=== PATIENT | female | born 1935 | race Caucasian/White ===

== ENCOUNTER 2024-03-20 07:25 | Observation (INO) ==
[2024-03-20] MEDS: CATAPRES TAB 0.1 MG PO ONE (08:01)
[2024-03-20 08:24] LABS: BASOPHILS # (AUTO) 0.1 X10^3/uL (0.0-0.1); BASOPHILS % (AUTO) 1.4 % (0.2-1.0); EOSINOPHILS # (AUTO) 0.2 x10^3/uL (0.0-0.2); EOSINOPHILS % (AUTO) 2.8 % (0.9-2.9); HEMATOCRIT 36.2 % (36.0-47.0); HEMOGLOBIN 12.5 g/dL (12.0-16.0); LYMPHOCYTES # (AUTO) 2.5 X10^3/uL (1.3-2.9); LYMPHOCYTES % (AUTO) 36.8 % (21.0-51.0); MEAN CORPUSCULAR HEMOGLOBIN 32.2 pg (27.0-34.0); MEAN CORPUSCULAR HGB CONC 34.5 g/dL (33.0-35.0); MEAN CORPUSCULAR VOLUME 93.1 fL (80.0-100.0); MEAN PLATELET VOLUME 6.8 fL (7.4-11.0); MONOCYTES # (AUTO) 0.5 x10^3/uL (0.3-0.8); MONOCYTES % (AUTO) 7.1 % (0.0-13.0); NEUTROPHILS # (AUTO) 3.6 x10^3/uL (2.2-4.8); NEUTROPHILS % (AUTO) 51.9 % (42.0-75.0); PLATELET COUNT 283 X10^3/uL (150.0-450.0); RED BLOOD COUNT 3.89 X10^6/uL (3.5-5.4); RED CELL DISTRIBUTION WIDTH 13.1 % (11.6-16.5); WHITE BLOOD COUNT 6.9 X10^3/uL (3.6-10.0)
--- NOTE | 2024-03-20 08:29 | EKG ---
Test Reason : hypertension Blood Pressure : */* mmHG Vent. Rate : 54 BPM Atrial Rate : 54 BPM P-R Int : 150 ms QRS Dur : 82 ms QT Int : 472 ms P-R-T Axes : 59 23 65 degrees QTc Int : 447 ms Sinus bradycardia Possible Anterior infarct , age undetermined Abnormal ECG No previous ECGs available Confirmed by Raymundo Winston MD ([id number]) on 03/21/2024 7:49:00 AM Referred By: Confirmed By: Raymundo Winston MD
[2024-03-20 08:38] LABS: ALANINE AMINOTRANSFERASE 19 Units/L (12-78); ALBUMIN 3.4 g/dL (3.4-5.0); ALKALINE PHOSPHATASE 33 Units/L (46-116); ASPARTATE AMINO TRANSFERASE 26 Units/L (15-37); BLOOD UREA NITROGEN 19 mg/dL (7-18); CALCIUM 9.3 mg/dL (8.5-10.1); CARBON DIOXIDE 30.7 mmol/L (21-32); CHLORIDE 107 mmol/L (98-107); CREATININE 1.09 mg/dL (0.55-1.02); GLUCOSE 95 mg/dL (65-99); SODIUM 143 mmol/L (136-145); TOTAL PROTEIN 6.6 g/dL (6.4-8.2); eGFR NON BLACK RACES 51 (>60)
[2024-03-20 08:40] LABS: POTASSIUM 4.2 mmol/L (3.5-5.1)
--- NOTE | 2024-03-20 08:40 | RAD ---
EXAM:CHEST, 1 VIEWHISTORY:HypertensionCOMPARISON:None available.FINDINGS:The trachea is midline. The cardiac silhouette is unremarkable . The lungs are clear without focal infiltrate or effusion. The bony thorax is unremarkable.IMPRESSION:No acute cardiopulmonary disease.THIS IS AN ELECTRONICALLY VERIFIED FINAL [id number]/20/2024 8:34 AM - Electronically signed by Andrey Rojo MD
--- NOTE | 2024-03-20 08:40 | CT ---
EXAM: BRAIN W/O CON HISTORY: HTN, DIZZY; Patient states her BP was elevated last PM to 186 systolic around 0300, she took her Olme sartan HCTZ 20/12.5 and rechecked this am 0720 and 158/79. She complains of feeling weak and dizzy wh en standing COMPARISON: None available. TECHNIQUE: Multiple axial images of the brain were obtained from the skull base to the vertex without administr ation of IV contrast. Dose reduction techniques including Automated Exposure Control (AEC) and adjus tment of mA and kV were utilized. FINDINGS: No acute intraparenchymal hemorrhage or mass can be identified. No extra-axial fluid collections are seen. Focal region of decreased attenuation within the region of the right jerzy is observed consiste nt with subacute to chronic appearing lacunar infarct. Otherwise, no alteration in the attenuation o f the brain parenchyma can be identified to suggest acute or subacute ischemic change. The ventricula r system is symmetric and nondilated. There is chronic periventricular white matter disease observed and age-appropriate generalized atrophy. IMPRESSION: 1. Subacute to chronic appearing lacunar infarct of the right jerzy is observed. Lesions age-indeter minate no prior studies available for comparison.. 2. 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 3. Age-appropriate atrophic changes are seen. THIS IS AN ELECTRONICALLY VERIFIED FINAL REPORT 03/20/2024 8:34 AM - Electronically signed by Andrey Rojo MD
--- NOTE | 2024-03-20 08:43 | DR.HTN ---
HPI Time Seen Time Seen by Provider: 03/20/24 07:35 Primary Care Physician Primary Care Physician: Arnel Colon Complaints Chief Complaint:: Patient states her BP was elevated last PM to 186 systolic around 0300, she took her Olmesartan HCTZ 20/12.5 and rechecked this am 0720 and 158/79. She complains of feeling weak and dizzy when standing Self Treatment fo Chief Complaint: RX medication for BP COVID-19 Coronavirus risk:travel/contact w/high risk person: No Has patient experienced Coronavirus symptoms: No Reviewed Nurses Notes Reviewed: Yes Source History Provided: Patient Mode of Arrival Mode of Arrival: EMS Timing Onset of Chief Complaint: 03/19/24 Duration Duration: 1 d Severity What was the maximum recorded B/P?: 183/110 Context History of: None Associated Signs and Symptoms HTN Associated Signs and Symptoms: Dizziness PMH PMH Past Medical History: Yes Past Medical History: Dyslipidemia and Hypertension Past Surgical History: Yes Surgical History: Appendectomy, Cholecystectomy, Hysterectomy and Tonsillectomy Family History History of Family Medical Conditions: Yes Family Medical History: Coronary Artery Disease, Sudden Cardiac and Hypertension Social History Does patient currently use any type of tobacco product: No Have you used tobacco products in the last 12 months: No Type of Tobacco Use: None Does any household member use tobacco: No Alcohol Use: None Do you use any recreational Drugs:: No Lives With: Alone Travel Risk Coronavirus risk:travel/contact w/high risk person: No Has patient experienced Coronavirus symptoms: No Infectious screening In the last 2 months have you had wt loss of >10#?: NO Have you had fever, night sweats or hemotysis?: No Have you traveled outside the country in the last 6 months?: No Isolation: Standard ROS Review of Systems All Other Systems: Reviewed and Negative PE Vital Signs Vitals: Vital Signs Temperature 98.1 F Pulse Rate 63 Pulse Rate 54 Pulse Rate 50 Pulse Rate 52 Pulse Rate 54 Pulse Rate 52 Pulse Rate 53 Pulse Rate 54 Pulse Rate 58 Pulse Rate 57 Pulse Rate 59 Pulse Rate 72 Pulse Rate 59 Respiratory Rate 23 Respiratory Rate 27 Respiratory Rate 17 Respiratory Rate 20 Respiratory Rate 36 Respiratory Rate 30 Respiratory Rate 22 Respiratory Rate 22 Respiratory Rate 26 Respiratory Rate 49 Respiratory Rate 29 Respiratory Rate 38 Respiratory Rate 16 Blood Pressure 160/68 Blood Pressure 157/72 Blood Pressure 169/69 Blood Pressure 159/72 Blood Pressure 201/81 Blood Pressure 188/77 Blood Pressure 183/80 Blood Pressure 188/82 Blood Pressure 211/81 O2 Sat by Pulse Oximetry 99 O2 Sat by Pulse Oximetry 96 O2 Sat by Pulse Oximetry 97 O2 Sat by Pulse Oximetry 96 O2 Sat by Pulse Oximetry 96 O2 Sat by Pulse Oximetry 98 O2 Sat by Pulse Oximetry 98 O2 Sat by Pulse Oximetry 99 O2 Sat by Pulse Oximetry 99 O2 Sat by Pulse Oximetry 98 General General Appearance: Alert and In No Apparent Distress Eyes Pupils: Regular, Round: Bilateral ENT ENT Exam: Normal Exam Neck Neck Exam: Normal Inspection Chest Chest Inspection: Normal Inspection Respiratory Respiratory Exam: Normal Lung Sounds Bilat Cardiovascular Cardiovascular Exam: Regular Rate and Normal Rhythm Extremities Extremities Exam: negative Edema Neurologic Neurological Exam: Alert, Oriented X3 and CN II-XII Intact; negative Motor Sensory Deficit Psychiatric Psychiatric Exam: Normal Affect MDM Differential Diagnosis Differential Diagnosis: CHF and HTN encephalopathy COURSE Treatment Treatment: clonidine Reevaluation 1st: Improved 2nd: Resolved and Improved ROR Labs Reviewed Laboratory Results Reviewed?: Yes 03/20/24 08:13 03/20/24 08:13 Laboratory: WBC 6.9 X10^3/uL (3.6-10.0) 03/20/24 08:13 RBC 3.89 X10^6/uL (3.5-5.4) 03/20/24 08:13 Hgb 12.5 g/dL (12.0-16.0) 03/20/24 08:13 Hct 36.2 % (36.0-47.0) 03/20/24 08:13 MCV 93.1 fL (80.0-100.0) 03/20/24 08:13 MCH 32.2 pg (27.0-34.0) 03/20/24 08:13 MCHC 34.5 g/dL (33.0-35.0) 03/20/24 08:13 RDW 13.1 % (11.6-16.5) 03/20/24 08:13 Plt Count 283 X10^3/uL (150.0-450.0) 03/20/24 08:13 MPV 6.8 fL (7.4-11.0) L 03/20/24 08:13 Neut % (Auto) 51.9 % (42.0-75.0) 03/20/24 08:13 Lymph % (Auto) 36.8 % (21.0-51.0) 03/20/24 08:13 [place] % (Auto) 7.1 % (0.0-13.0) 03/20/24 08:13 Eos % (Auto) 2.8 % (0.9-2.9) 03/20/24 08:13 Baso % (Auto) 1.4 % (0.2-1.0) H 03/20/24 08:13 Neut # (Auto) 3.6 x10^3/uL (2.2-4.8) 03/20/24 08:13 Lymph # (Auto) 2.5 X10^3/uL (1.3-2.9) 03/20/24 08:13 [place] # (Auto) 0.5 x10^3/uL (0.3-0.8) 03/20/24 08:13 Eos # (Auto) 0.2 x10^3/uL (0.0-0.2) 03/20/24 08:13 Baso # (Auto) 0.1 X10^3/uL (0.0-0.1) 03/20/24 08:13 Absolute Nucleated RBC 0.1 /100WBC 03/20/24 08:13 Sodium 143 mmol/L (136-145) 03/20/24 08:13 Corrected Sodium TNP 03/20/24 08:13 Potassium 4.2 mmol/L (3.5-5.1) 03/20/24 08:13 Chloride 107 mmol/L (98-107) 03/20/24 08:13 Carbon Dioxide 30.7 mmol/L (21-32) 03/20/24 08:13 BUN 19 mg/dL (7-18) H 03/20/24 08:13 Creatinine 1.09 mg/dL (0.55-1.02) H 03/20/24 08:13 Est GFR (MDRD) Af Amer > 60 (>60) 03/20/24 08:13 Est GFR (MDRD) Non-Af 51 (>60) L 03/20/24 08:13 Glucose 95 mg/dL (65-99) 03/20/24 08:13 Calcium 9.3 mg/dL (8.5-10.1) 03/20/24 08:13 Corrected Calcium TNP 03/20/24 08:13 Total Bilirubin 0.60 mg/dL (0.2-1.0) 03/20/24 08:13 AST 26 Units/L (15-37) 03/20/24 08:13 ALT 19 Units/L (12-78) 03/20/24 08:13 Alkaline Phosphatase 33 Units/L (46-116) L 03/20/24 08:13 Troponin I High Sens 13.0 ng/L (4.0-60.0) 03/20/24 08:13 Total Protein 6.6 g/dL (6.4-8.2) 03/20/24 08:13 Albumin 3.4 g/dL (3.4-5.0) 03/20/24 08:13 Globulin 3.2 g/dL (2.5-4.5) 03/20/24 08:13 Albumin/Globulin Ratio 1.1 Ratio (1.1-2.1) 03/20/24 08:13 Other Results Comments: EKG: nsr, nssttw changes, without stemi XRAY XRAY Interpreted by: Radiologist, Self and Both X-ray Results: CT head: "Subacute to chronic appearing lacunar infarct of the right jerzy, laser zones indeterminate, no prior studies available for comparison, chronic periventricular white matter disease likely on the basis of small vessel ischemic change, age-appropriate atrophic changes seen" Chest x-ray: No acute disease EKG Rate: 54 Story: Normal Rhythm: NSR Block: None Hypertrophy: None ST: Normal Opioid Opioid Risk Tool Age ([place] box if 16-45): No History of Preadolescent Sexual Abuse: No Total: 0 Total Score Risk Category: Low Risk Copyright: Lance ELLIOTT predicting aberrant behaviors Discharge Plan Diagnosis Discharge Problem: Acute CVA (cerebrovascular accident) Discharge Plan Patient Disposition: ADMITTED INPATIENT Condition: Stable Orders to Discharge Patient Discharge Orders: Transfer (Routine); Ordered 03/20/24 Ordered By: Joss Sanchez
[2024-03-20] MEDS: ASPIRIN PO ONE ×2 (08:51→08:53)
[2024-03-20] MEDS: TYLENOL 325 MG TAB PO ONE (08:52)
[2024-03-20 10:38] LABS: APPEARANCE,URINE CLEAR (CLEAR); BILIRUBIN,URINE NEGATIVE (NEGATIVE); BLOOD/HEMOGLOBIN,URINE 1+ (NEGATIVE); COLOR,URINE YELLOW (YELLOW); GLUCOSE, URINE NEGATIVE (NEGATIVE); KETONES,URINE NEGATIVE (NEGATIVE); LEUKOCYTE ESTERASE ,URINE NEGATIVE (NEGATIVE); NITRITES,URINE NEGATIVE (NEGATIVE); PH,URINE 6.5 (5.0 - 8.0); PROTEIN,URINE NEGATIVE (NEGATIVE); UROBILINOGEN,URINE NORMAL (NORMAL)
[2024-03-20 10:39] LABS: BACTERIA,URINE TRACE /HPF (NEGATIVE); RBC,URINE 0-2 /HPF (0-3); SQUAMOUS EPITHELIAL CELL,UR FEW /HPF (NEGATIVE)
[2024-03-20] MEDS ORDERED: CONSULT PHARMACY - POTASSIUM & MAGNESIUM XX SCH (11:25)
--- NOTE | 2024-03-20 12:48 | CT ---
EXAM:BRAIN CTA; CAROTID CTAHISTORY:cva; appendix, hysterectomy, [id number] omni 350 given per exam, total of 150cc No Reaction noted ; cva; hysterectomy, tonsilectomy, [id number] per exam injected for total of 150cc No Reaction noted with injectionCOMPARISON:No relevant prior studies are available for comparison at the time of interpretationTECHNIQUE:CT images were obtained. Multiplanar reconstructions were created on a separate workstation and used during interpretation. All CT scans at this facility is dose modulation, iterative reconstruction, and/or weight-based dosing as appropriate to reduce radiation to levels as low as reasonably achievable (ALARA). Postprocessing details, radiation dose, and contrast dose (if applicable) are recorded in the patient's medical record. 2 Dimensional reconstructions were performed on the imaging modality. 3 Dimensional reconstructions performed on a separate workstation. Stenosis measurements performed utilizing NASCET criteria. 3-D images reviewedFINDINGS:NECK CTA:Aorta and major branch vessels: No significant aortic abnormality. No significant great vessel stenosis.Right carotid: No hemodynamically significant stenosis. Less than 50% stenosis above the bifurcationLeft carotid: No hemodynamically significant stenosis. Less than 50% stenosis above the bifurcationVertebral arteries: Cervical vertebral arteries are widely patent.HEAD CTA-ANTERIOR:No aneurysmInternal carotid arteries: No significant stenosis or abrupt cut off.Anterior cerebral arteries: No significant stenosis or abrupt cut off.Middle cerebral arteries: No significant stenosis or abrupt cut off.HEAD CTA-POSTERIOR:Vertebral arteries: No significant stenosis or abrupt cut off.Vertebrobasilar junction: Normal. No aneurysm.Basilar artery: No significant stenosis or abrupt cut off.Cerebellar arteries: No significant stenosis or abrupt cut off.Posterior cerebral arteries: No significant stenosis or abrupt cut off.Posterior communicating arteries: Neither posterior communicating arteries visualized. These may be developmentally diminutive or absent.Venous dural sinuses: No dural sinus thrombosis identified.NONVASCULAR: No acute cervical soft tissue abnormality. No acute osseous abnormality. Lung apices are clear. No pneumothorax.IMPRESSION:1. No acute vascular abnormality in the head or neckTHIS IS AN ELECTRONICALLY VERIFIED FINAL [id number]/20/2024 12:45 PM - Electronically signed by José Miguel Mary MD
--- NOTE | 2024-03-20 12:48 | CT ---
EXAM: BRAIN CTA; CAROTID CTA HISTORY: cva; appendix, hysterectomy, [id number] omni 350 given per exam, total of 150cc No Reaction not ed ; cva; hysterectomy, tonsilectomy, [id number] per exam injected for total of 150cc No Reaction n oted with injection COMPARISON: No relevant prior studies are available for comparison at the time of interpretation TECHNIQUE: CT images were obtained. Multiplanar reconstructions were created on a separate workstation and used during interpretation. All CT scans at this facility is dose modulation, iterative reconstruction, an d/or weight-based dosing as appropriate to reduce radiation to levels as low as reasonably achievable (ALARA). Postprocessing details, radiation dose, and contrast dose (if applicable) are recorded in t he patient's medical record. 2 Dimensional reconstructions were performed on the imaging modality. 3 Dimensional reconstructions performed on a separate workstation. Stenosis measurements performed util izing NASCET criteria. 3-D images reviewed FINDINGS: NECK CTA: Aorta and major branch vessels: No significant aortic abnormality. No significant great vessel stenos is. Right carotid: No hemodynamically significant stenosis. Less than 50% stenosis above the bifurcation Left carotid: No hemodynamically significant stenosis. Less than 50% stenosis above the bifurcation Vertebral arteries: Cervical vertebral arteries are widely patent. HEAD CTA-ANTERIOR: No aneurysm Internal carotid arteries: No significant stenosis or abrupt cut off. Anterior cerebral arteries: No significant stenosis or abrupt cut off. Middle cerebral arteries: No significant stenosis or abrupt cut off. HEAD CTA-POSTERIOR: Vertebral arteries: No significant stenosis or abrupt cut off. Vertebrobasilar junction: Normal. No aneurysm. Basilar artery: No significant stenosis or abrupt cut off. Cerebellar arteries: No significant stenosis or abrupt cut off. Posterior cerebral arteries: No significant stenosis or abrupt cut off. Posterior communicating arteries: Neither posterior communicating arteries visualized. These may be d evelopmentally diminutive or absent. Venous dural sinuses: No dural sinus thrombosis identified. NONVASCULAR: No acute cervical soft tissue abnormality. No acute osseous abnormality. Lung apices are clear. No pneumothorax. IMPRESSION: 1. No acute vascular abnormality in the head or neck THIS IS AN ELECTRONICALLY VERIFIED FINAL REPORT 03/20/2024 12:45 PM - Electronically signed by José Miguel Mary MD
--- NOTE | 2024-03-20 12:48 | DR.H&P ---
H&P History & Physical for Day of: H&P Date: 03/20/24 Chief Complaint Chief Complaint: headache, elevated BP History of Present Illness History of Present Illness: Ms Mohamud is a 88y/o female with a PMH of HLD, HTN and depression presented with elevated BP. She states her BP has been in the 200s since yesterday. She does take BP medicine daily. Denies hx of CAD, CHF or CVA. ER work up showed BP 211/81. She was given clonidine 0.1 mg once. It did come down to SBP in the 150s. Labs showed neg trop, no significant abnormalities. CXR was negative for acute changes. 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 Patient was admitted for further management. Patient denies any focal neurological deficits. Labs/imaging reviewed: -WBC 6.9 Hgb 12.5 BUN/Cr -CT-brain reviewed Plan: admit to med-surg with telemetry, neuro checks. CTA brain and neck pending. MRI and echo ordered for tomorrow. Will add hydralazine IV prn. Continue asa. Add lipitor qHS. Check lipid panel. Replace electrolytes prn. Resume home medications. Monitor AM labs/imaging. Past Medical History Past Medical History: Dyslipidemia and Hypertension Past Surgical History Surgical History: Appendectomy, Cholecystectomy, Hysterectomy and Tonsillectomy Family History Family Medical History: Coronary Artery Disease, Sudden Cardiac and Hypertension Social History Does patient currently use any type of tobacco product: No Have you used tobacco products in the last 12 months: No Type of Tobacco Use: None Does any household member use tobacco: No Alcohol Use: None Medications Home Medications: Home Medications Medication Instructions Recorded Confirmed Type olmesartan 20 1 tab PO QDAY 08/23/23 03/20/24 History mg-hydrochlorothiazide 12.5 mg tablet escitalopram oxalate 10 mg tablet 10 mg PO QDAY anxiety 03/20/24 03/20/24 History Allergies Allergies Allergy/AdvReac Type Severity Reaction Status Date / Time ciprofloxacin Allergy Verified 08/23/23 09:19 Penicillins Allergy Verified 08/23/23 09:08 Sulfa (Sulfonamide Allergy Verified 08/23/23 09:08 Antibiotics) [SULFA] Labs 03/20/24 08:13 03/20/24 08:13 Labs: Laboratory WBC 6.9 X10^3/uL (3.6-10.0) 03/20/24 08:13 RBC 3.89 X10^6/uL (3.5-5.4) 03/20/24 08:13 Hgb 12.5 g/dL (12.0-16.0) 03/20/24 08:13 Hct 36.2 % (36.0-47.0) 03/20/24 08:13 MCV 93.1 fL (80.0-100.0) 03/20/24 08:13 MCH 32.2 pg (27.0-34.0) 03/20/24 08:13 MCHC 34.5 g/dL (33.0-35.0) 03/20/24 08:13 RDW 13.1 % (11.6-16.5) 03/20/24 08:13 Plt Count 283 X10^3/uL (150.0-450.0) 03/20/24 08:13 MPV 6.8 fL (7.4-11.0) L 03/20/24 08:13 Neut % (Auto) 51.9 % (42.0-75.0) 03/20/24 08:13 Lymph % (Auto) 36.8 % (21.0-51.0) 03/20/24 08:13 [place] % (Auto) 7.1 % (0.0-13.0) 03/20/24 08:13 Eos % (Auto) 2.8 % (0.9-2.9) 03/20/24 08:13 Baso % (Auto) 1.4 % (0.2-1.0) H 03/20/24 08:13 Neut # (Auto) 3.6 x10^3/uL (2.2-4.8) 03/20/24 08:13 Lymph # (Auto) 2.5 X10^3/uL (1.3-2.9) 03/20/24 08:13 [place] # (Auto) 0.5 x10^3/uL (0.3-0.8) 03/20/24 08:13 Eos # (Auto) 0.2 x10^3/uL (0.0-0.2) 03/20/24 08:13 Baso # (Auto) 0.1 X10^3/uL (0.0-0.1) 03/20/24 08:13 Absolute Nucleated RBC 0.1 /100WBC 03/20/24 08:13 Sodium 143 mmol/L (136-145) 03/20/24 08:13 Corrected Sodium TNP 03/20/24 08:13 Potassium 4.2 mmol/L (3.5-5.1) 03/20/24 08:13 Chloride 107 mmol/L (98-107) 03/20/24 08:13 Carbon Dioxide 30.7 mmol/L (21-32) 03/20/24 08:13 BUN 19 mg/dL (7-18) H 03/20/24 08:13 Creatinine 1.09 mg/dL (0.55-1.02) H 03/20/24 08:13 Est GFR (MDRD) Af Amer > 60 (>60) 03/20/24 08:13 Est GFR (MDRD) Non-Af 51 (>60) L 03/20/24 08:13 Glucose 95 mg/dL (65-99) 03/20/24 08:13 Calcium 9.3 mg/dL (8.5-10.1) 03/20/24 08:13 Corrected Calcium TNP 03/20/24 08:13 Total Bilirubin 0.60 mg/dL (0.2-1.0) 03/20/24 08:13 AST 26 Units/L (15-37) 03/20/24 08:13 ALT 19 Units/L (12-78) 03/20/24 08:13 Alkaline Phosphatase 33 Units/L (46-116) L 03/20/24 08:13 Troponin I High Sens 13.0 ng/L (4.0-60.0) 03/20/24 08:13 Total Protein 6.6 g/dL (6.4-8.2) 03/20/24 08:13 Albumin 3.4 g/dL (3.4-5.0) 03/20/24 08:13 Globulin 3.2 g/dL (2.5-4.5) 03/20/24 08:13 Albumin/Globulin Ratio 1.1 Ratio (1.1-2.1) 03/20/24 08:13 Specimen Type Clean catch urine 03/20/24 10:20 Urine Color Yellow (YELLOW) 03/20/24 10:20 Urine Appearance Clear (CLEAR) 03/20/24 10:20 Urine pH 6.5 (5.0 - 8.0) 03/20/24 10:20 Ur Specific [place] 1.010 (1.000-1.030) 03/20/24 10:20 Urine Protein Negative (NEGATIVE) 03/20/24 10:20 Urine Glucose (UA) Negative (NEGATIVE) 03/20/24 10:20 Urine Ketones Negative (NEGATIVE) 03/20/24 10:20 Urine Blood 1+ (NEGATIVE) 03/20/24 10:20 Urine Nitrite Negative (NEGATIVE) 03/20/24 10:20 Urine Bilirubin Negative (NEGATIVE) 03/20/24 10:20 Urine Urobilinogen Normal (NORMAL) 03/20/24 10:20 Ur Leukocyte Esterase Negative (NEGATIVE) 03/20/24 10:20 Urine RBC 0-2 /HPF (0-3) 03/20/24 10:20 Urine WBC None seen /HPF (0-5) 03/20/24 10:20 Ur Squamous Epith Cells Few /HPF (NEGATIVE) 03/20/24 10:20 Urine Bacteria Trace /HPF (NEGATIVE) 03/20/24 10:20 Ur Culture Indicated? No/not indicated 03/20/24 10:20 Review of Systems Constitutional: Weakness Eyes: No Symptoms Reported ENT: No Symptoms Reported Respiratory: No Symptoms Reported Cardiovascular: No Symptoms Reported Gastrointestinal: No Symptoms Reported Genitourinary: No Symptoms Reported Musculoskeletal: No Symptoms Reported Skin: No Symptoms Reported Neurological: Other (headache ) Physical Exam Vital Signs: Vital Signs Temperature 98.0 F Temperature 98.1 F Pulse Rate 50 Pulse Rate 49 Pulse Rate 50 Pulse Rate 70 Pulse Rate 49 Pulse Rate 49 Pulse Rate 47 Pulse Rate 50 Pulse Rate 52 Pulse Rate 63 Pulse Rate 54 Pulse Rate 50 Pulse Rate 52 Pulse Rate 54 Pulse Rate 52 Pulse Rate 53 Pulse Rate 54 Pulse Rate 58 Pulse Rate 57 Pulse Rate 59 Pulse Rate 72 Pulse Rate 59 Respiratory Rate 28 Respiratory Rate 27 Respiratory Rate 37 Respiratory Rate 21 Respiratory Rate 23 Respiratory Rate 21 Respiratory Rate 21 Respiratory Rate 23 Respiratory Rate 27 Respiratory Rate 17 Respiratory Rate 20 Respiratory Rate 36 Respiratory Rate 30 Respiratory Rate 22 Respiratory Rate 22 Respiratory Rate 26 Respiratory Rate 49 Respiratory Rate 29 Respiratory Rate 38 Respiratory Rate 16 Blood Pressure 169/86 Blood Pressure 160/68 Blood Pressure 157/72 Blood Pressure 169/69 Blood Pressure 159/72 Blood Pressure 201/81 Blood Pressure 188/77 Blood Pressure 183/80 Blood Pressure 188/82 Blood Pressure 211/81 O2 Sat by Pulse Oximetry 99 O2 Sat by Pulse Oximetry 99 O2 Sat by Pulse Oximetry 100 O2 Sat by Pulse Oximetry 97 O2 Sat by Pulse Oximetry 98 O2 Sat by Pulse Oximetry 97 O2 Sat by Pulse Oximetry 97 O2 Sat by Pulse Oximetry 97 O2 Sat by Pulse Oximetry 98 O2 Sat by Pulse Oximetry 99 O2 Sat by Pulse Oximetry 96 O2 Sat by Pulse Oximetry 97 O2 Sat by Pulse Oximetry 96 O2 Sat by Pulse Oximetry 96 O2 Sat by Pulse Oximetry 98 O2 Sat by Pulse Oximetry 98 O2 Sat by Pulse Oximetry 99 O2 Sat by Pulse Oximetry 99 O2 Sat by Pulse Oximetry 98 Oriented: Normal Throat: Normal Respiratory: Clear Throughout Cardiovascular: Normal Auscultation: Bowel Sounds: Normal Palpation: Normal Tenderness: Normal Skin: Bruising and Ecchymosis Musculoskeletal: Normal Psychiatric: Normal Mood Description: Calm Affect: Normal Speech Pattern: Clear and Appropriate Assessment/Plan (1) Acute CVA (cerebrovascular accident): Status: Acute (2) Accelerated essential hypertension: Status: Acute (3) Generalized weakness: Status: Acute Review H&P Reviewed: Yes Patient was examined?: Yes
[2024-03-20 12:58] VITALS: BMI 23.1
[2024-03-20] MEDS: HYDROCHLOROTHIAZIDE 12.5 MG CAP PO SCH (13:16)
[2024-03-20] MEDS: BENICAR PO SCH (13:16)
[2024-03-20] MEDS: APRESOLINE INJ 20 MG VIAL IVP PRN (13:17)
[2024-03-20] MEDS: CATAPRES TAB 0.1 MG ONE (13:44)
[2024-03-20] MEDS: OMNIPAQUE 350 mg/mL 50 mL BTL 50 ML ONE (13:44)
[2024-03-20] MEDS: NS 500 ML IV 500 ML IV ONE (13:44)
[2024-03-20] MEDS: OMNIPAQUE 350 mg/mL 100 mL BTL 100 ML ONE ×2 (13:44→14:59)
[2024-03-20] MEDS: MILK OF MAGNESIA PO SCH (21:18)
[2024-03-20] MEDS: LIPITOR TAB 40 MG PO SCH (21:20)
[2024-03-20] MEDS: COLACE CAP 100 MG PO SCH (21:20)
--- NOTE | 2024-03-21 01:13 | EKG ---
Test Reason : Tachycardia Blood Pressure : */* mmHG Vent. Rate : 95 BPM Atrial Rate : 95 BPM P-R Int : 188 ms QRS Dur : 74 ms QT Int : 382 ms P-R-T Axes : 63 46 70 degrees QTc Int : 480 ms Normal sinus rhythm Nonspecific ST abnormality Abnormal ECG When compared with ECG of 20-MAR-2024 08:25, (Unconfirmed) Vent. rate has increased BY 41 BPM Confirmed by Raymundo Winston MD ([id number]) on 03/21/2024 7:46:45 AM Referred By: Confirmed By: Raymundo Winston MD
[2024-03-21] MEDS: VALIUM PO PRN (01:24)
[2024-03-21] MEDS: TYLENOL 325 MG TAB PO PRN (03:43)
[2024-03-21 06:48] LABS: BASOPHILS # (AUTO) 0.1 X10^3/uL (0.0-0.1); BASOPHILS % (AUTO) 0.9 % (0.2-1.0); EOSINOPHILS # (AUTO) 0.2 x10^3/uL (0.0-0.2); EOSINOPHILS % (AUTO) 1.4 % (0.9-2.9); HEMATOCRIT 36.6 % (36.0-47.0); HEMOGLOBIN 12.5 g/dL (12.0-16.0); LYMPHOCYTES # (AUTO) 2.8 X10^3/uL (1.3-2.9); MEAN CORPUSCULAR HEMOGLOBIN 31.9 pg (27.0-34.0); MEAN CORPUSCULAR HGB CONC 34.3 g/dL (33.0-35.0); MEAN CORPUSCULAR VOLUME 93.1 fL (80.0-100.0); MEAN PLATELET VOLUME 7.6 fL (7.4-11.0); MONOCYTES # (AUTO) 0.7 x10^3/uL (0.3-0.8); MONOCYTES % (AUTO) 6.4 % (0.0-13.0); NEUTROPHILS # (AUTO) 7.1 x10^3/uL (2.2-4.8); NEUTROPHILS % (AUTO) 65.3 % (42.0-75.0); PLATELET COUNT 293 X10^3/uL (150.0-450.0); RED BLOOD COUNT 3.93 X10^6/uL (3.5-5.4); RED CELL DISTRIBUTION WIDTH 13.1 % (11.6-16.5); WHITE BLOOD COUNT 10.8 X10^3/uL (3.6-10.0)
[2024-03-21 07:22] LABS: ALANINE AMINOTRANSFERASE 18 Units/L (12-78); ALBUMIN 3.3 g/dL (3.4-5.0); ALKALINE PHOSPHATASE 32 Units/L (46-116); ASPARTATE AMINO TRANSFERASE 20 Units/L (15-37); BLOOD UREA NITROGEN 19 mg/dL (7-18); CALCIUM 9.2 mg/dL (8.5-10.1); CARBON DIOXIDE 25.6 mmol/L (21-32); CHLORIDE 106 mmol/L (98-107); CHOL/HDL RATIO 3.1 (0.0-5.0); CHOLESTEROL 204 mg/dL (0-200); COR CA(FOR HYPOALB) 9.8 mg/dL (8.5-10.1); CREATININE 1.05 mg/dL (0.55-1.02); GLUCOSE 96 mg/dL (65-99); HDL CHOLESTEROL 66 mg/dL (40-60); POTASSIUM 3.8 mmol/L (3.5-5.1); SODIUM 142 mmol/L (136-145); TOTAL PROTEIN 6.4 g/dL (6.4-8.2); TRIGLYCERIDES 69 mg/dL (0-150); eGFR NON BLACK RACES 53 (>60)
[2024-03-21] MEDS ORDERED: LEXAPRO ONE (08:48)
[2024-03-21] MEDS: LEXAPRO PO SCH (08:51)
[2024-03-21] MEDS: ASPIRIN EC 81 MG PO SCH (08:52)
[2024-03-21] MEDS ORDERED: OLMESARTAN HYDROCHLOROTHIAZIDE PO SCH (09:00)
[2024-03-21] MEDS: LOVENOX INJ 40 MG SYR SC SCH (10:11)
[2024-03-21 10:37] VITALS: RESP 19
[2024-03-21 12:08] VITALS: BP 166/69; PULSE 65; TEMP 97.9; O2SAT 96
--- NOTE | 2024-03-21 13:34 | MRI ---
EXAM:BRAIN W/O CONHISTORY:cva;COMPARISON:CT yesterdayTECHNIQUE:Multiplanar multi-sequence MRI of the brain was obtained utilizing standard departmental protocol. Sagittal and axial T1 weighted images were obtained. Axial T2 and flair weighted images were performed as well. Axial diffusion weighted and ADC trace mapping was performed.FINDINGS:The midline structures appear unremarkable. The evaluation of the brain parenchyma demonstrates no abnormal signal characteristics to suggest intraparenchymal mass or hemorrhage. No extra-axial fluid collections are observed. The ventricular system appears symmetric and nondilated. The CP angle is normal in its appearance without brainstem mass or evidence for acoustic neuroma. The flow voids on both T1 and T2 weighted imaging appear unremarkable. Evaluation of the diffusion weighted imaging does not demonstrate abnormal signal characteristics to suggest acute ischemic change. Scattered small-vessel ischemic changes and age-appropriate atrophy noted. The extracranial structures are unremarkable.IMPRESSION:Chronic changes as above with no acute intracranial findingsTHIS IS AN ELECTRONICALLY VERIFIED FINAL [id number]/21/2024 1:31 PM - Electronically signed by Jeovanny Silva MD
--- NOTE | 2024-03-23 10:46 | W.DIS.FURT ---
Summary of Discharge Discharge Summary of Date Date of Exam: 03/21/24 Admission Date Date of Admission: 03/20/24 Admission Diagnosis Patient Problems (Updated 03/20/24 @ 12:48 by Dorota Gallego MD) Acute CVA (cerebrovascular accident) (Acute) I63.9 Hospital Course: Ms Mohamud is a 88y/o female with a PMH of HLD, HTN and depression presented with elevated BP. She states her BP has been in the 200s since yesterday. She does take BP medicine daily. Denies hx of CAD, CHF or CVA. ER work up showed BP 211/81. She was given clonidine 0.1 mg once. It did come down to SBP in the 150s. Labs showed neg trop, no significant abnormalities. CXR was negative for acute changes. 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 Patient was admitted for further management. Patient denies any focal neurological deficits. Her labs were monitored daily and electrolytes replaced. She was started on lipitor due to HLD. She remained on telemetry with neurochecks. MRI did not show any acute change. CTA head and neck was also normal. Patient was ambulating in the room. Her BP did improve. She was stable for discharge home and will f/u with PCP. Her BP medication dose was increased. Vital Signs: Vital Signs (72 hours) 03/20/24 07:26 03/20/24 07:53 03/20/24 07:55 Temperature 98.1 F Pulse Rate 59 L 72 Pulse Rate [Radial] Respiratory Rate 16 38 H Blood Pressure 211/81 188/82 Blood Pressure [Left Arm] Blood Pressure [Right Arm] O2 Sat by Pulse Oximetry 98 Oxygen Delivery Method Room Air 03/20/24 07:55 03/20/24 08:00 03/20/24 08:00 Temperature Pulse Rate 59 L 57 L Pulse Rate [Radial] Respiratory Rate 29 H 49 H Blood Pressure 183/80 Blood Pressure [Left Arm] Blood Pressure [Right Arm] O2 Sat by Pulse Oximetry Oxygen Delivery Method 03/20/24 08:24 03/20/24 08:25 03/20/24 08:25 Temperature Pulse Rate 58 L 54 L Pulse Rate [Radial] Respiratory Rate 26 H Blood Pressure 188/77 Blood Pressure [Left Arm] Blood Pressure [Right Arm] O2 Sat by Pulse Oximetry 99 99 Oxygen Delivery Method 03/20/24 08:30 03/20/24 08:52 03/20/24 08:31 Temperature Pulse Rate 53 L Pulse Rate [Radial] Respiratory Rate 22 20 Blood Pressure 201/81 Blood Pressure [Left Arm] Blood Pressure [Right Arm] O2 Sat by Pulse Oximetry 98 Oxygen Delivery Method 03/20/24 08:31 03/20/24 08:45 03/20/24 08:47 Temperature Pulse Rate 52 L 54 L 52 L Pulse Rate [Radial] Respiratory Rate 22 30 H 36 H Blood Pressure Blood Pressure [Left Arm] Blood Pressure [Right Arm] O2 Sat by Pulse Oximetry 98 96 96 Oxygen Delivery Method 03/20/24 08:47 03/20/24 09:00 03/20/24 09:00 Temperature Pulse Rate 50 L Pulse Rate [Radial] Respiratory Rate 17 Blood Pressure 159/72 169/69 157/72 Blood Pressure [Left Arm] Blood Pressure [Right Arm] O2 Sat by Pulse Oximetry 97 Oxygen Delivery Method 03/20/24 09:00 03/20/24 09:05 03/20/24 09:06 Temperature Pulse Rate 54 L 63 Pulse Rate [Radial] Respiratory Rate 27 H 23 Blood Pressure 160/68 Blood Pressure [Left Arm] Blood Pressure [Right Arm] O2 Sat by Pulse Oximetry 96 99 Oxygen Delivery Method 03/20/24 09:06 03/20/24 09:08 03/20/24 09:08 Temperature Pulse Rate 52 L 50 L Pulse Rate [Radial] Respiratory Rate 21 21 Blood Pressure 169/86 Blood Pressure [Left Arm] Blood Pressure [Right Arm] O2 Sat by Pulse Oximetry 98 97 Oxygen Delivery Method 03/20/24 09:15 03/20/24 09:45 03/20/24 10:00 Temperature Pulse Rate 47 L 49 L 49 L Pulse Rate [Radial] Respiratory Rate 23 21 37 H Blood Pressure Blood Pressure [Left Arm] Blood Pressure [Right Arm] O2 Sat by Pulse Oximetry 97 97 98 Oxygen Delivery Method 03/20/24 10:18 03/20/24 10:30 03/20/24 10:45 Temperature Pulse Rate 70 50 L 49 L Pulse Rate [Radial] Respiratory Rate 27 H Blood Pressure Blood Pressure [Left Arm] Blood Pressure [Right Arm] O2 Sat by Pulse Oximetry 97 100 99 Oxygen Delivery Method 03/20/24 11:00 03/20/24 12:23 03/20/24 12:15 Temperature 98.0 F 97.8 F Pulse Rate 50 L Pulse Rate [Radial] 60 Respiratory Rate 28 H 20 Blood Pressure Blood Pressure [Left Arm] 196/84 Blood Pressure [Right Arm] O2 Sat by Pulse Oximetry 99 99 Oxygen Delivery Method Room Air 03/20/24 13:20 03/20/24 13:25 03/20/24 13:30 Temperature Pulse Rate Pulse Rate [Radial] Respiratory Rate Blood Pressure Blood Pressure [Left Arm] 197/81 176/77 170/72 Blood Pressure [Right Arm] O2 Sat by Pulse Oximetry Oxygen Delivery Method 03/20/24 13:35 03/20/24 13:40 03/20/24 10:51 Temperature Pulse Rate Pulse Rate [Radial] Respiratory Rate Blood Pressure Blood Pressure [Left Arm] 175/75 173/75 Blood Pressure [Right Arm] O2 Sat by Pulse Oximetry Oxygen Delivery Method Room Air 03/20/24 16:00 03/20/24 19:41 03/20/24 19:00 Temperature 97.7 F 97.7 F Pulse Rate Pulse Rate [Radial] 66 67 Respiratory Rate 20 16 Blood Pressure Blood Pressure [Left Arm] 133/63 Blood Pressure [Right Arm] 139/62 O2 Sat by Pulse Oximetry 99 99 Oxygen Delivery Method Room Air Room Air Room Air 03/21/24 00:00 03/21/24 03:43 03/21/24 04:00 Temperature 97.9 F 97.8 F Pulse Rate Pulse Rate [Radial] 65 79 Respiratory Rate 18 20 16 Blood Pressure Blood Pressure [Left Arm] 148/67 Blood Pressure [Right Arm] 177/74 O2 Sat by Pulse Oximetry 99 97 Oxygen Delivery Method Room Air Room Air 03/21/24 04:43 03/21/24 10:35 03/21/24 08:00 Temperature 97.7 F Pulse Rate Pulse Rate [Radial] 84 Respiratory Rate 18 19 Blood Pressure Blood Pressure [Left Arm] Blood Pressure [Right Arm] 122/57 O2 Sat by Pulse Oximetry 98 Oxygen Delivery Method Room Air Room Air 03/21/24 12:00 Temperature 97.9 F Pulse Rate Pulse Rate [Radial] 65 Respiratory Rate 19 Blood Pressure Blood Pressure [Left Arm] Blood Pressure [Right Arm] 166/69 O2 Sat by Pulse Oximetry 96 Oxygen Delivery Method Room Air Labs: Laboratory Last Values WBC 10.8 X10^3/uL (3.6-10.0) H 03/21/24 05:25 RBC 3.93 X10^6/uL (3.5-5.4) 03/21/24 05:25 Hgb 12.5 g/dL (12.0-16.0) 03/21/24 05:25 Hct 36.6 % (36.0-47.0) 03/21/24 05:25 MCV 93.1 fL (80.0-100.0) 03/21/24 05:25 MCH 31.9 pg (27.0-34.0) 03/21/24 05:25 MCHC 34.3 g/dL (33.0-35.0) 03/21/24 05:25 RDW 13.1 % (11.6-16.5) 03/21/24 05:25 Plt Count 293 X10^3/uL (150.0-450.0) 03/21/24 05:25 MPV 7.6 fL (7.4-11.0) 03/21/24 05:25 Neut % (Auto) 65.3 % (42.0-75.0) 03/21/24 05:25 Lymph % (Auto) 26.0 % (21.0-51.0) 03/21/24 05:25 [place] % (Auto) 6.4 % (0.0-13.0) 03/21/24 05:25 Eos % (Auto) 1.4 % (0.9-2.9) 03/21/24 05:25 Baso % (Auto) 0.9 % (0.2-1.0) 03/21/24 05:25 Neut # (Auto) 7.1 x10^3/uL (2.2-4.8) H 03/21/24 05:25 Lymph # (Auto) 2.8 X10^3/uL (1.3-2.9) 03/21/24 05:25 [place] # (Auto) 0.7 x10^3/uL (0.3-0.8) 03/21/24 05:25 Eos # (Auto) 0.2 x10^3/uL (0.0-0.2) 03/21/24 05:25 Baso # (Auto) 0.1 X10^3/uL (0.0-0.1) 03/21/24 05:25 Absolute Nucleated RBC 0.2 /100WBC 03/21/24 05:25 Sodium 142 mmol/L (136-145) 03/21/24 05:25 Corrected Sodium TNP 03/21/24 05:25 Potassium 3.8 mmol/L (3.5-5.1) 03/21/24 05:25 Chloride 106 mmol/L (98-107) 03/21/24 05:25 Carbon Dioxide 25.6 mmol/L (21-32) 03/21/24 05:25 BUN 19 mg/dL (7-18) H 03/21/24 05:25 Creatinine 1.05 mg/dL (0.55-1.02) H 03/21/24 05:25 Est GFR (MDRD) Af Amer > 60 (>60) 03/21/24 05:25 Est GFR (MDRD) Non-Af 53 (>60) L 03/21/24 05:25 Glucose 96 mg/dL (65-99) 03/21/24 05:25 Calcium 9.2 mg/dL (8.5-10.1) 03/21/24 05:25 Corrected Calcium 9.8 mg/dL (8.5-10.1) 03/21/24 05:25 Total Bilirubin 0.50 mg/dL (0.2-1.0) 03/21/24 05:25 AST 20 Units/L (15-37) 03/21/24 05:25 ALT 18 Units/L (12-78) 03/21/24 05:25 Alkaline Phosphatase 32 Units/L (46-116) L 03/21/24 05:25 Troponin I High Sens 13.0 ng/L (4.0-60.0) 03/20/24 08:13 Total Protein 6.4 g/dL (6.4-8.2) 03/21/24 05:25 Albumin 3.3 g/dL (3.4-5.0) L 03/21/24 05:25 Globulin 3.1 g/dL (2.5-4.5) 03/21/24 05:25 Albumin/Globulin Ratio 1.1 Ratio (1.1-2.1) 03/21/24 05:25 Triglycerides 69 mg/dL (0-150) 03/21/24 05:25 Cholesterol 204 mg/dL (0-200) H 03/21/24 05:25 LDL Cholesterol, Calc 124 mg/dL (0-100) H 03/21/24 05:25 HDL Cholesterol 66 mg/dL (40-60) H 03/21/24 05:25 Cholesterol/HDL Ratio 3.1 (0.0-5.0) 03/21/24 05:25 Specimen Type Clean catch urine 03/20/24 10:20 Urine Color Yellow (YELLOW) 03/20/24 10:20 Urine Appearance Clear (CLEAR) 03/20/24 10:20 Urine pH 6.5 (5.0 - 8.0) 03/20/24 10:20 Ur Specific [place] 1.010 (1.000-1.030) 03/20/24 10:20 Urine Protein Negative (NEGATIVE) 03/20/24 10:20 Urine Glucose (UA) Negative (NEGATIVE) 03/20/24 10:20 Urine Ketones Negative (NEGATIVE) 03/20/24 10:20 Urine Blood 1+ (NEGATIVE) 03/20/24 10:20 Urine Nitrite Negative (NEGATIVE) 03/20/24 10:20 Urine Bilirubin Negative (NEGATIVE) 03/20/24 10:20 Urine Urobilinogen Normal (NORMAL) 03/20/24 10:20 Ur Leukocyte Esterase Negative (NEGATIVE) 03/20/24 10:20 Urine RBC 0-2 /HPF (0-3) 03/20/24 10:20 Urine WBC None seen /HPF (0-5) 03/20/24 10:20 Ur Squamous Epith Cells Few /HPF (NEGATIVE) 03/20/24 10:20 Urine Bacteria Trace /HPF (NEGATIVE) 03/20/24 10:20 Ur Culture Indicated? No/not indicated 03/20/24 10:20 Reason For Visit: CVA Discharge Diagnosis All Active Problems (Updated 03/20/24 @ 12:48 by Dorota Gallego MD) Generalized weakness (Acute) Accelerated essential hypertension (Acute) Sinusitis (Acute) Acute CVA (cerebrovascular accident) (Acute) Plan of Treatment: Continue with present treatment and follow up plan. Pt is to keep follow up appointment as instructed and take medications as ordered. Discharge Medications Discharge Medications: ciprofloxacin Allergy (Verified 08/23/23 09:19) Penicillins Allergy (Verified 08/23/23 09:08) Sulfa (Sulfonamide Antibiotics) [SULFA] Allergy (Verified 08/23/23 09:08) CONTINUE taking the following medications aspirin 81 mg tablet 81 mg PO QDAY 03/20/24 [History] escitalopram oxalate 10 mg tablet 10 mg PO QDAY anxiety 03/20/24 [History] mirabegron 50 mg tablet,extended release 24 hr (Myrbetriq) 50 mg PO QDAY 03/20/24 [History] New Prescriptions atorvastatin 40 mg tablet 40 mg PO HS 30 days #30 tabs 03/21/24 [Rx] olmesartan 40 mg-hydrochlorothiazide 12.5 mg tablet 1 tab PO QDAY 30 days #30 tabs 03/21/24 [Rx] Discharge Disposition Discharge Disposition: home Discharge Condition: stable Discharge Plan Discharge Plan Hospital Course: Ms Mohamud is a 88y/o female with a PMH of HLD, HTN and depression presented with elevated BP. She states her BP has been in the 200s since yesterday. She does take BP medicine daily. Denies hx of CAD, CHF or CVA. ER work up showed BP 211/81. She was given clonidine 0.1 mg once. It did come down to SBP in the 150s. Labs showed neg trop, no significant abnormalities. CXR was negative for acute changes. 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 Patient was admitted for further management. Patient denies any focal neurological deficits. Her labs were monitored daily and electrolytes replaced. She was started on lipitor due to HLD. She remained on telemetry with neurochecks. MRI did not show any acute change. CTA head and neck was also normal. Patient was ambulating in the room. Her BP did improve. She was stable for discharge home and will f/u with PCP. Her BP medication dose was increased. Patient Disposition: 01 HOME, SELF-CARE Condition: Stable Health Concerns: Post Hospitalization: new medications and changes needed to prevent readmission or further decline. Pt educated and given instructions on all concerns. Care Plan Goals: Problem: Altered Tissue Perfusion Goal: Adequate Tissue Perfusion Instructions: Follow provided instructions. Follow up with primary physician as directed. Contact primary care physician or report to the closest Emergency Room if condition worsens. Plan of Treatment: Continue with present treatment and follow up plan. Pt is to keep follow up appointment as instructed and take medications as ordered. Prescription drug monitoring program results: PDMP reviewed and no concerns identified Prescriptions: New atorvastatin 40 mg Tablet 40 mg PO HS 30 Days Qty: 30 0RF olmesartan-hydrochlorothiazide 40-12.5 mg tablet 1 tab PO QDAY 30 Days Qty: 30 0RF Continued escitalopram oxalate 10 mg tablet 10 mg PO QDAY aspirin 81 mg Tablet 81 mg PO QDAY mirabegron [Myrbetriq] 50 mg Tablet Extended Release 24 Hr 50 mg PO QDAY Discontinued olmesartan-hydrochlorothiazide 20-12.5 mg tablet 1 tab PO QDAY Orders to Discharge Patient Discharge Orders: Discharge (Routine); Ordered 03/21/24 Ordered By: Dorota Gallego Follow ups/Referrals Follow ups/Referrals: KEISHA SHETTY [REFERRING] - 03/28/24 2:00 pm Instructions Instructions: Hospital Discharge After a Stroke, Stroke Prevention, [id number], Weakness, [id number], Hypertension, Adult, [id number], Ma naging Your Hypertension Stand Alone Forms: Post Hospital Follow Up Care
== END 2024-03-21 15:20 | disposition home or self-care (01) ==
LOC: ER 07:25 → MED/SURG 07:25
PROVIDERS: ADMIT Internal Medicine; ATTEND Internal Medicine
DX: I10 Essential (primary) hypertension; E78.5 Hyperlipidemia, unspecified; I63.89 Other cerebral infarction; K59.09 Other constipation; R42 Dizziness and giddiness; R94.31 Abnormal electrocardiogram [ECG] [EKG]; F32.89 Other specified depressive episodes; R53.1 Weakness; R25.8 Other abnormal involuntary movements; R51.9 Headache, unspecified